=== PATIENT | male | born 1965 | race Two or more races ===

== ENCOUNTER 2016-08-19 19:17 | Emergency (ER) | payer SELFPAY ==
[~2016-08-19] VITALS: Ht 177.8 cm; Wt 186.0 kg
[2016-08-19] MEDS ORDERED: SULF1TAB24 PO (19:42)
[2016-08-19] MEDS ORDERED: HYDR-971 PO (19:42)
[2016-08-19 19:57] VITALS: BP 117/61
[2016-08-19] MEDS ORDERED: SMZ/TMP 800/160MG TABLET. PO ONE (20:00)
--- NOTE | 2016-08-19 20:37 | ED.ADGEN ---
Past Medical History Past Medical History: Hypertension Past Surgical History: Appendectomy Alcohol Use: Sober Drug Use: None Adult General Chief Complaint Chief Complaint: LOWER EXTREMITY EDEMA HPI HPI Patient is a 51 year old male presents emergency department with erythema and tenderness was right lower extremity that began 2 nights ago. He states that it came on suddenly and was accompanied by fever and chills. Denies any chest pain or shortness of breath. Review of Systems Review of Systems Constitutional: Denies fever or chills. [] Eyes: Denies change in visual acuity. [] HENT: Denies nasal congestion or sore throat. [] Respiratory: Denies cough or shortness of breath. [] Cardiovascular: Denies chest pain or edema. [] GI: Denies abdominal pain, nausea, vomiting, bloody stools or diarrhea. [] : Denies dysuria. [] Musculoskeletal: Denies back pain or joint pain. [] Integument: Denies rash. [] Neurologic: Denies headache, focal weakness or sensory changes. [] Endocrine: Denies polyuria or polydipsia. [] Lymphatic: Denies swollen glands. [] Psychiatric: Denies depression or anxiety. [] Current Medications Current Medications Current Medications Medications (Trade) Dose Ordered Sig/Irvin Start Time Stop Time Status Last Admin Dose Admin Trimethoprim/ Sulfamethoxazole (Bactrim Ds) 1 tab 1X ONCE 08/19/16 20:00 08/19/16 20:01 DC 08/19/16 19:51 1 TAB Allergies Allergies Allergies Coded Allergies Type Severity Reaction Last Updated Verified No Known Drug Allergies 09/13/15 No Physical Exam Physical Exam Constitutional: Well developed, well nourished, no acute distress, non-toxic appearance. [] HENT: Normocephalic, atraumatic, bilateral external ears normal, oropharynx moist, no oral exudates, nose normal. [] Eyes: PERRLA, EOMI, conjunctiva normal, no discharge. [] Neck: Normal range of motion, no tenderness, supple, no stridor. [] Cardiovascular:Heart rate regular rhythm, no murmur [] Lungs & Thorax: Bilateral breath sounds clear to auscultation [] Abdomen: Bowel sounds normal, soft, no tenderness, no masses, no pulsatile masses. [] Skin: Warm, dry, skin on the right lower extremity is circumferentially erythematous and tender to touch with minimal edema [] Back: No tenderness, no CVA tenderness. [] Extremities: No tenderness, no cyanosis, no clubbing, ROM intact, no edema. [] Neurologic: Alert and oriented X 3, normal motor function, normal sensory function, no focal deficits noted. [] Psychologic: Affect normal, judgement normal, mood normal. [] Current Patient Data Vital Signs Vital Signs Date Time Temp Pulse Resp B/P Pulse Ox O2 Delivery O2 Flow Rate FiO2 08/19/16 19:57 71 17 117/61 96 Room Air 08/19/16 19:17 97.8 97.8 EKG EKG [] Radiology/Procedures Radiology/Procedures [] Course & Med Decision Making Course & Med Decision Making Pertinent Labs and Imaging studies reviewed. (See chart for details) Patient has a cellulitis. He was given a dose of Bactrim here in emergency department sent home with prescriptions for Bactrim and Neoga. Supportive care as well as follow-up and return precautions. Cellulitis [] Dragon Disclaimer Dragon Disclaimer This electronic medical record was generated, in whole or in part, using a voice recognition dictation system. LIU SAENZ MD Aug 19, 2016 20:37
== END 2016-08-19 20:02 | disposition home or self-care (01) ==
LOC: ER 19:17
DX: L03.115 Cellulitis of right lower limb (principal); I10 Essential (primary) hypertension
CPT/HCPCS: 99283

== ENCOUNTER 2017-05-20 11:23 | Emergency (ER) | payer SELFPAY ==
[~2017-05-20] VITALS: Ht 177.8 cm; Wt 190.5 kg
[~2017-05-20 11:23] MED LIST: HYDR-971 PO; SULF1TAB24 PO
[2017-05-20 12:00] VITALS: BP 150/69
[2017-05-20 12:24] LABS: BILIRUBIN,URINE NEGATIVE (NEG); GLUCOSE,URINE NEGATIVE (NEG); NITRITE,URINE POSITIVE (NEG); PH,URINE 8.5; PROTEIN,URINE 100 mg/dL (NEG-TRACE)
[2017-05-20 12:38] LABS: BACTERIA,URINE MODERATE /HPF (0-FEW); SQUAMOUS EPITHELIAL CELL,UR MOD /LPF
[2017-05-20] MEDS ORDERED: SULF1TAB24 PO (12:55)
--- NOTE | 2017-05-21 15:43 | PHYS DOC ---
Past Medical History Past Medical History: Hypertension, UTI Past Surgical History: Appendectomy, Other Additional Past Surgical Histo: L KNEE, LIP Alcohol Use: Sober Drug Use: None Adult General Chief Complaint Chief Complaint: PAIN ON URINATION [facility] Patient is a 52 year old male who presents with pain with urination. Patient states he has frequency urgency and dysuria. He is noticing some discoloration and darkening of his urine today. His symptoms began 2 days ago. He denies nausea, vomiting or fever. Review of Systems Review of Systems Constitutional: Denies fever or chills [] Respiratory: Denies cough or shortness of breath [] Cardiovascular: No additional information not addressed in HPI [] GI: Denies abdominal pain, nausea, vomiting, bloody stools or diarrhea [] : See history of present illness Musculoskeletal: Denies back pain or joint pain [] Integument: Denies rash or skin lesions [] Neurologic: Denies headache, focal weakness or sensory changes [] Endocrine: Denies polyuria or polydipsia [] All other systems were reviewed and found to be within normal limits, except as documented in this note. Allergies Allergies Allergies Coded Allergies Type Severity Reaction Last Updated Verified No Known Drug Allergies 09/13/15 No Physical Exam Physical Exam Constitutional: Well developed, well nourished, no acute distress, non-toxic appearance. [] Cardiovascular:Heart rate regular rhythm, no murmur [] Lungs & Thorax: Bilateral breath sounds clear to auscultation [] Abdomen: Bowel sounds normal, soft, no tenderness, no masses, no pulsatile masses. [] Skin: Warm, dry, no erythema, no rash. [] Back: No tenderness, no CVA tenderness. [] Neurologic: Alert and oriented X 3, normal motor function, normal sensory function, no focal deficits noted. [] Psychologic: Affect normal, judgement normal, mood normal. [] Current Patient Data Vital Signs Vital Signs Date Time Temp Pulse Resp B/P (MAP) Pulse Ox O2 Delivery O2 Flow Rate FiO2 05/20/17 12:00 97.8 106 20 97 Room Air 97.8 Lab Values Laboratory Tests Test 05/20/17 11:54 Urine Collection Type Void Urine Color Red Urine Clarity Cloudy Urine pH 8.5 Urine Specific [place] 1.015 Urine Protein 100 mg/dL (NEG-TRACE) Urine Glucose (UA) Negative mg/dL (NEG) Urine Ketones (Stick) Negative mg/dL (NEG) Urine Blood Moderate (NEG) Urine Nitrite Positive (NEG) Urine Bilirubin Negative (NEG) Urine Urobilinogen Dipstick 1.0 mg/dL (0.2 mg/dL) Urine Leukocyte Esterase Large (NEG) Urine RBC 6-10 /HPF (0-2) Urine WBC 5-10 /HPF (0-4) Urine Squamous Epithelial Cells Mod /LPF Urine Amorphous Sediment Present /HPF Urine Bacteria Moderate /HPF (0-FEW) Urine Mucus Slight /LPF EKG EKG [] Radiology/Procedures Radiology/Procedures [] Course & Med Decision Making Course & Med Decision Making Pertinent Labs and Imaging studies reviewed. (See chart for details) []1. Urinary tract infection Please take the Anaprox your prescribed as directed. Please follow-up with your primary care provider in one week for recheck of your urine. Since you have had more than one urinary tract infection it is recommended that you see a urologist for your symptoms as well. Please return to the ED if worsening. Dragon Disclaimer Dragon Disclaimer This electronic medical record was generated, in whole or in part, using a voice recognition dictation system. Departure Departure Impression: Primary Impression: Urinary tract infection Disposition: HOME, SELF-CARE Condition: STABLE Patient Instructions: Urinary Tract Infection Additional Instructions: Follow-up with your primary care provider in one week for a recheck of your urine. Please take your antibiotic as directed. Scripts Sulfamethoxazole/Trimethoprim (BACTRIM DS TABLET) 1 Each Tablet 1 TAB PO BID, #20 TAB Prov: ANA MARIA PENDLETON APRN 05/20/17 ANA MARIA PENDLETON APRN May 21, 2017 15:43
== END 2017-05-20 12:58 | disposition home or self-care (01) ==
LOC: ER 11:23
DX: N39.0 Urinary tract infection, site not specified (principal); I10 Essential (primary) hypertension; Z90.49 Acquired absence of other specified parts of digestive tract; Z87.440 Personal history of urinary (tract) infections
CPT/HCPCS: 81001; 87086; 99284

== ENCOUNTER 2018-12-05 12:36 | Emergency (ER) | payer SELFPAY ==
[~2018-12-05] VITALS: Ht 175.3 cm; Wt 170.1 kg
[~2018-12-05 12:36] MED LIST changes: +CIPR500T94 PO; +HYDR-3164 PO; -HYDR-971 PO
[2018-12-05 12:48] VITALS: BP 134/94
[2018-12-05 13:08] LABS: BILIRUBIN,URINE NEGATIVE (NEG); CLARITY,URINE CLOUDY; COLOR,URINE YELLOW; NITRITE,URINE NEGATIVE (NEG); PROTEIN,URINE NEGATIVE (NEG-TRACE); UROBILINOGEN,URINE 0.2 mg/dL (0.2 mg/dL)
[2018-12-05 13:24] LABS: BACTERIA,URINE MANY /HPF (0-FEW); SQUAMOUS EPITHELIAL CELL,UR MOD /LPF; WBC,URINE TNTC /HPF (0-4)
[2018-12-05] MEDS ORDERED: CIPR500T94 PO (13:34)
--- NOTE | 2018-12-05 13:34 | PHYS DOC ---
Past Medical History Past Medical History: Hypertension Past Surgical History: No Surgical History Additional Past Surgical Histo: L KNEE, LIP Alcohol Use: None Drug Use: None Adult General Chief Complaint Chief Complaint: PAIN ON URINATION HPI HPI Patient is a 53 year old with history of hypertension who presents to the ED today complaining of dysuria for 2 days. Denies any fever. Denies any nausea. Patient states he has history of UTIs. He states he has no concerns for STDs. Denies any history of diabetes or BPH. He states he has an appointment with his doctor next month. Review of Systems Review of Systems Constitutional: Denies fever or chills [] Eyes: Denies change in visual acuity, redness, or eye pain [] HENT: Denies nasal congestion or sore throat [] Respiratory: Denies cough or shortness of breath [] Cardiovascular: No additional information not addressed in HPI [] GI: Denies abdominal pain, nausea, vomiting, bloody stools or diarrhea [] : Reports dysuria Musculoskeletal: Denies back pain or joint pain [] Integument: Denies rash or skin lesions [] Neurologic: Denies headache, focal weakness or sensory changes [] All other systems were reviewed and found to be within normal limits, except as documented in this note. Allergies Allergies Allergies Coded Allergies Type Severity Reaction Last Updated Verified No Known Drug Allergies 09/13/15 No Physical Exam Physical Exam Constitutional: Well developed, well nourished, no acute distress, non-toxic appearance. [] HENT: Normocephalic, atraumatic, bilateral external ears normal, oropharynx moist, no oral exudates, nose normal. [] Eyes: PERRLA, EOMI, conjunctiva normal, no discharge. [] Neck: Normal range of motion, no tenderness, supple, no stridor. [] Cardiovascular:Heart rate regular rhythm, no murmur [] Lungs & Thorax: Bilateral breath sounds clear to auscultation [] Abdomen: Bowel sounds normal, soft, no tenderness, no masses, no pulsatile masses. [] Skin: Warm, dry, no erythema, no rash. [] Back: No tenderness, no CVA tenderness. [] Extremities: No tenderness, no cyanosis, no clubbing, ROM intact, no edema. [] Neurologic: Alert and oriented X 3, normal motor function, normal sensory function, no focal deficits noted. [] Psychologic: Affect normal, judgement normal, mood normal. [] Current Patient Data Vital Signs Vital Signs Date Time Temp Pulse Resp B/P (MAP) Pulse Ox O2 Delivery O2 Flow Rate FiO2 12/05/18 12:48 97.8 107 16 134/94 (107) 95 Room Air 97.8 Lab Values Laboratory Tests Test 12/05/18 12:53 Urine Collection Type Unknown Urine Color Yellow Urine Clarity Cloudy Urine pH 7.0 Urine Specific [place] 1.010 Urine Protein Negative mg/dL (NEG-TRACE) Urine Glucose (UA) Negative mg/dL (NEG) Urine Ketones (Stick) Negative mg/dL (NEG) Urine Blood Moderate (NEG) Urine Nitrite Negative (NEG) Urine Bilirubin Negative (NEG) Urine Urobilinogen Dipstick 0.2 mg/dL (0.2 mg/dL) Urine Leukocyte Esterase Large (NEG) Urine RBC 6-10 /HPF (0-2) Urine WBC Tntc /HPF (0-4) Urine Squamous Epithelial Cells Mod /LPF Urine Bacteria Many /HPF (0-FEW) EKG EKG [] Radiology/Procedures Radiology/Procedures [] Course & Med Decision Making Course & Med Decision Making Pertinent Labs and Imaging studies reviewed. (See chart for details) This is a 53-year-old male patient presenting to the ED today with dysuria and concern for UTI, urine positive for large amount of leukocytes, WBCs. Discharged on Cipro. Instructed push fluids. Patient has an appointment with his own doctor next month which is in a couple days. Provided return precautions and discharged in stable condition. Dragon Disclaimer Dragon Disclaimer This electronic medical record was generated, in whole or in part, using a voice recognition dictation system. Departure Departure Impression: Primary Impression: UTI (urinary tract infection) Disposition: HOME, SELF-CARE Condition: STABLE Referrals: KENNY MENA MD (PCP) follow up next month Patient Instructions: Urinary Tract Infection Additional Instructions: You have urinary tract infection, we put you on antibiotics ensure you complete them. Take your antibiotics until completed. Push fluids. Follow up with your doctor in 1 week Scripts Ciprofloxacin Hcl (CIPRO) 500 Mg Tablet 1 TAB PO BID, #14 TAB Prov: MUTMARIBELLANITA [employer] 12/05/18 Problem Qualifiers Primary Impression: UTI (urinary tract infection) Urinary tract infection type: site unspecified Hematuria presence: without hematuria Qualified Codes: N39.0 - Urinary tract infection, site not specified NITA HERNANDEZ [employer] Dec 05, 2018 13:34
== END 2018-12-05 14:18 | disposition home or self-care (01) ==
LOC: ER 12:36
DX: N39.0 Urinary tract infection, site not specified (principal); I10 Essential (primary) hypertension
CPT/HCPCS: 81001; 87086; 99284

== ENCOUNTER 2019-04-10 11:32 | Emergency (ER) | payer SELFPAY ==
[~2019-04-10] VITALS: Ht 177.8 cm; Wt 181.4 kg
[2019-04-10 11:43] VITALS: BP 171/97
[2019-04-10 11:59] LABS: BILIRUBIN,URINE NEGATIVE (NEG); CLARITY,URINE CLOUDY; COLOR,URINE YELLOW; NITRITE,URINE NEGATIVE (NEG); PROTEIN,URINE 100 mg/dL (NEG-TRACE); UROBILINOGEN,URINE 0.2 mg/dL (0.2 mg/dL)
[2019-04-10 12:11] LABS: SQUAMOUS EPITHELIAL CELL,UR MOD /LPF
[2019-04-10 12:12] LABS: BACTERIA,URINE MANY /HPF (0-FEW)
[2019-04-10] MEDS ORDERED: PHEN100T82 PO (12:51)
[2019-04-10] MEDS ORDERED: CIPR250T30 PO (12:51)
--- NOTE | 2019-04-10 12:52 | PHYS DOC ---
Past Medical History Past Medical History: Hypertension Past Surgical History: No Surgical History Additional Past Surgical Histo: L KNEE, LIP Alcohol Use: None Drug Use: None Adult General Chief Complaint Chief Complaint: PAIN ON URINATION [facility] HPI Patient is a 54 year old male who presents with complaining of "UTI". Patient complaining of urinary frequency and dysuria for the last 2 days without nausea and vomiting, fever and chills, abdominal pain, she states she had the same symptom 10 or 11 months ago and he knew he had UTI. Review of Systems Review of Systems Constitutional: Denies fever or chills [] Eyes: Denies change in visual acuity, redness, or eye pain [] HENT: Denies nasal congestion or sore throat [] Respiratory: Denies cough or shortness of breath [] Cardiovascular: No additional information not addressed in HPI [] GI: Denies abdominal pain, nausea, vomiting, bloody stools or diarrhea [] : Denies hematuria , reports dysuria[] Musculoskeletal: Denies back pain or joint pain [] Integument: Denies rash or skin lesions [] Neurologic: Denies headache, focal weakness or sensory changes [] Endocrine: Denies polyuria or polydipsia [] All other systems were reviewed and found to be within normal limits, except as documented in this note. Allergies Allergies Allergies Coded Allergies Type Severity Reaction Last Updated Verified No Known Drug Allergies 09/13/15 No Physical Exam Physical Exam Constitutional: Well developed, well nourished, no distress, non-toxic appearance, morbidly obese. [] HENT: Normocephalic, atraumatic. Eyes: PERRLA, EOMI, conjunctiva normal, no discharge. [] Neck: Normal range of motion, no tenderness, supple, no stridor. [] Cardiovascular:Heart rate regular rhythm, no murmur [] Lungs & Thorax: Bilateral breath sounds clear to auscultation [] Abdomen: Bowel sounds normal, soft, no tenderness, no masses, no pulsatile masses. [] Skin: Warm, dry, no erythema, no rash. [] Back: No tenderness, no CVA tenderness. [] Extremities: No tenderness, no cyanosis, no clubbing, ROM intact. [] Neurologic: Alert and oriented X 3, no focal deficits noted. [] Psychologic: Affect normal, judgement normal, mood normal. [] Current Patient Data Vital Signs Vital Signs Date Time Temp Pulse Resp B/P (MAP) Pulse Ox O2 Delivery O2 Flow Rate FiO2 04/10/19 11:43 97.7 108 22 171/97 (121) 95 Room Air 97.7 Lab Values Laboratory Tests Test 04/10/19 11:40 Urine Collection Type Unknown Urine Color Yellow Urine Clarity Cloudy Urine pH 8.0 Urine Specific [place] 1.015 Urine Protein 100 mg/dL (NEG-TRACE) Urine Glucose (UA) Negative mg/dL (NEG) Urine Ketones (Stick) Negative mg/dL (NEG) Urine Blood Small (NEG) Urine Nitrite Negative (NEG) Urine Bilirubin Negative (NEG) Urine Urobilinogen Dipstick 0.2 mg/dL (0.2 mg/dL) Urine Leukocyte Esterase Large (NEG) Urine RBC 1-2 /HPF (0-2) Urine WBC 11-20 /HPF (0-4) Urine Squamous Epithelial Cells Mod /LPF Urine Bacteria Many /HPF (0-FEW) EKG EKG [] Radiology/Procedures Radiology/Procedures [] Course & Med Decision Making Course & Med Decision Making Pertinent Labs reviewed. (See chart for details) I've spoken with the patient and/or caregivers. I've explained the patient's condition, diagnosis and treatment plan based on information available to me at this time. I've answered the patient's and/or caregivers questions and addressed any concerns. The patient and/or caregivers have a good understanding the patient's diagnosis, condition and treatment plan as can be expected at this point. Vital signs have been stabilized. The patient's condition is stable for discharge from the emergency department. The patient will pursue further outpatient evaluation with her primary care provider or other designated consulting physician as outlined in the discharge instructions. Patient and/or caregivers are agreeable to this plan of care and follow-up instructions have been explained in detail. The patient and/or caregivers have received these instructions in written format and expressed understanding of these discharge instructions. The patient and her caregivers are aware that if any significant change in condition or worsening of symptoms should prompt him to immediately return to this of the closest emergency department. If an emergent department is not readily available I would encourage him to call [phone] Dragon Disclaimer Dragon Disclaimer This electronic medical record was generated, in whole or in part, using a voice recognition dictation system. Departure Departure Impression: Primary Impression: UTI (urinary tract infection) Additional Impressions: Dysuria Morbid obesity with BMI of 50.0-59.9, adult Disposition: 01 HOME, SELF-CARE (at 1247) Condition: STABLE Referrals: KENNY MENA MD (PCP) Patient Instructions: Dysuria, Urinary Tract Infection Additional Instructions: Drink plenty of liquids Follow-up with your primary care physician in 3-5 days Return to ER if not getting better Scripts Phenazopyridine Hcl (PYRIDIUM) 100 Mg Tablet 100 MG PO TID for dysuria, #10 TAB Prov: RAQUEL DOWD MD 04/10/19 Ciprofloxacin Hcl (CIPRO) 250 Mg Tablet 1 TAB PO BID for infection, #14 TAB Prov: RAQUEL DOWD MD 04/10/19 Problem Qualifiers Primary Impression: UTI (urinary tract infection) Urinary tract infection type: site unspecified Hematuria presence: without hematuria Qualified Codes: N39.0 - Urinary tract infection, site not specified RAQUEL DOWD MD Apr 10, 2019 12:52
== END 2019-04-10 13:06 | disposition home or self-care (01) ==
LOC: ER 11:32
DX: N39.0 Urinary tract infection, site not specified (principal); E66.01 Morbid (severe) obesity due to excess calories; Z68.43 Body mass index [BMI] 50.0-59.9, adult; I10 Essential (primary) hypertension
CPT/HCPCS: 81001; 87086; 99284

== ENCOUNTER 2020-03-23 12:53 | Emergency (ER) | payer MEDICAID ==
[~2020-03-23] VITALS: Ht 177.8 cm; Wt 187.2 kg
[~2020-03-23 12:53] MED LIST changes: +BENA20TA4 PO; +CIPR250T30 PO; +HYDR-2145 PO; +PHEN100T82 PO; +POTA20TA4 PO; +POTA8CAP19 PO
[2020-03-23 16:51] LABS: BILIRUBIN,URINE NEGATIVE (NEG); CLARITY,URINE CLOUDY; NITRITE,URINE NEGATIVE (NEG); PROTEIN,URINE 100 mg/dL (NEG-TRACE)
[2020-03-23 16:53] LABS: BACTERIA,URINE FEW /HPF (0-FEW); COLOR,URINE BROWN; RBC,URINE TNTC /HPF (0-2); WBC,URINE OCC /HPF (0-4)
--- NOTE | 2020-03-23 17:19 | PHYS DOC ---
Past Medical History Past Medical History: Hypertension Past Surgical History: No Surgical History Additional Past Surgical Histo: L KNEE, LIP Smoking Status: Former Smoker Alcohol Use: Occasionally Drug Use: None General Adult EDM: Chief Complaint: PAIN ON URINATION HPI: HPI: Patient is a 55 year old male who presents with dysuria and hematuria that began 2 days ago. Patient denies any fever, denies any abdominal pain, nausea or vomiting. Patient reports this is his typical presentation for UTI. Review of Systems: Review of Systems: Constitutional: Denies fever or chills. [] Eyes: Denies change in visual acuity. [] HENT: Denies nasal congestion or sore throat. [] Respiratory: Denies cough or shortness of breath. [] Cardiovascular: Denies chest pain or edema. [] GI: Denies abdominal pain, nausea, vomiting, bloody stools or diarrhea. [] : Reports dysuria and hematuria Musculoskeletal: Denies back pain or joint pain. [] Integument: Denies rash. [] Neurologic: Denies headache, focal weakness or sensory changes. [] Psychiatric: Denies depression or anxiety. [] Heart Score: Risk Factors: Risk Factors: DM, Current or recent (<one month) smoker, HTN, HLP, family history of CAD, obesity. Risk Scores: Score 0 - 3: 2.5% MACE over next 6 weeks - Discharge Home Score 4 - 6: 20.3% MACE over next 6 weeks - Admit for Clinical Observation Score 7 - 10: 72.7% MACE over next 6 weeks - Early Invasive Strategies Allergies: Allergies: Allergies Coded Allergies Type Severity Reaction Last Updated Verified morphine Allergy Intermediate Itching 03/23/20 Yes Physical Exam: PE: Constitutional: Well developed, well nourished, no acute distress, non-toxic appearance. [] HENT: Normocephalic, atraumatic, bilateral external ears normal, oropharynx moist, no oral exudates, nose normal. [] Eyes: PERRLA, EOMI, conjunctiva normal, no discharge. [] Neck: Normal range of motion, no tenderness, supple, no stridor. [] Cardiovascular:Heart rate regular rhythm, no murmur [] Lungs & Thorax: Bilateral breath sounds clear to auscultation [] Abdomen: Bowel sounds normal, soft, no tenderness, no masses, no pulsatile masses. [] Skin: Warm, dry, no erythema, no rash. [] Back: No tenderness, no CVA tenderness. [] Extremities: No tenderness, no cyanosis, no clubbing, ROM intact, no edema. [] Neurologic: Alert and oriented X 3, normal motor function, normal sensory function, no focal deficits noted. [] Psychologic: Affect normal, judgement normal, mood normal. [] Current Patient Data: Labs: Laboratory Tests Test 03/23/20 16:20 Urine Collection Type Unknown Urine Color Brown Urine Clarity Cloudy Urine pH 8.0 (<5.0-8.0) Urine Specific [place] 1.015 (1.000-1.030) Urine Protein 100 mg/dL (NEG-TRACE) Urine Glucose (UA) Negative mg/dL (NEG) Urine Ketones (Stick) Negative mg/dL (NEG) Urine Blood Large (NEG) Urine Nitrite Negative (NEG) Urine Bilirubin Negative (NEG) Urine Urobilinogen Dipstick 1.0 mg/dL (0.2 mg/dL) Urine Leukocyte Esterase Small (NEG) Urine RBC Tntc /HPF (0-2) Urine WBC Occ /HPF (0-4) Urine Bacteria Few /HPF (0-FEW) Vital Signs: Vital Signs Date Time Temp Pulse Resp B/P (MAP) Pulse Ox O2 Delivery O2 Flow Rate FiO2 03/23/20 16:20 97.9 84 20 141/94 (110) 95 Room Air 97.9 EKG: EKG: [] Radiology/Procedures: Radiology/Procedures: [] Course & Med Decision Making: Course & Med Decision Making Pertinent Labs and Imaging studies reviewed. (See chart for details) This is a 55-year-old male patient with history of UTI presenting today with hematuria and dysuria for 2 days. Positive for UTI. Discharged on Cipro. Instructed to push fluids and follow-up with the PCP in 1 to 2 weeks. Dragon Disclaimer: Dragon Disclaimer: This electronic medical record was generated, in whole or in part, using a voice recognition dictation system. Departure Departure Impression: Primary Impression: UTI (urinary tract infection) Qualified Codes: N39.0 - Urinary tract infection, site not specified; R31.9 - Hematuria, unspecified Disposition: 01 DC HOME SELF CARE/HOMELESS Condition: STABLE Referrals: KENNY MENA MD (PCP) Follow-up in 1 to 2 weeks Patient Instructions: Urinary Tract Infection Additional Instructions: You have urinary tract infection. Complete your antibiotics. Push fluids. Follow-up with your primary care doctor in the next 1 to 2 weeks Scripts Ciprofloxacin Hcl (CIPRO) 500 Mg Tablet 1 TAB PO BID for 7 Days, #14 TAB 0 Refills Prov: NITA HERNANDEZ APRN 03/23/20 NITA HERNANDEZ APRN Mar 23, 2020 17:19
[2020-03-23] MEDS ORDERED: CIPR500T94 PO (17:36)
[2020-03-23 17:40] VITALS: BP 138/79
== END 2020-03-23 17:40 | disposition home or self-care (01) ==
LOC: ER 12:53
DX: N39.0 Urinary tract infection, site not specified (principal); R31.9 Hematuria, unspecified; I10 Essential (primary) hypertension; Z98.890 Other specified postprocedural states; Z87.891 Personal history of nicotine dependence; Z88.6 Allergy status to analgesic agent
CPT/HCPCS: 81001; 87086; 99283

== ENCOUNTER 2020-08-15 15:17 | Emergency (ER) | payer MEDICAID ==
[~2020-08-15] VITALS: Ht 175.3 cm; Wt 163.0 kg
[2020-08-15 17:02] LABS: BILIRUBIN,URINE NEGATIVE (NEG); CLARITY,URINE CLOUDY; COLOR,URINE RED; NITRITE,URINE POSITIVE (NEG); PROTEIN,URINE 100 mg/dL (NEG-TRACE)
[2020-08-15 17:13] LABS: BACTERIA,URINE MODERATE /HPF (0-FEW); RBC,URINE TNTC /HPF (0-2); WBC,URINE TNTC /HPF (0-4)
[2020-08-15] MEDS ORDERED: NITROFURANTOIN MONOHYD/M-CRYST 100 MG CAPSULE. PO ONE (18:15)
[2020-08-15 18:36] LABS: BASO # 0.1 x10^3/uL (0.0-0.2); BASO % 1 % (0-3); EOS # 0.1 x10^3/uL (0.0-0.7); EOS % 1 % (0-3); HEMATOCRIT 43.3 % (39.0-53.0); HEMOGLOBIN 14.6 g/dL (13.0-17.5); LYMPH # 3.1 x10^3/uL (1.0-4.8); LYMPH % 33 % (24-48); MEAN CORPUSCULAR HEMOGLOBIN 27 pg (25-35); MEAN CORPUSCULAR HGB CONC 34 g/dL (31-37); MEAN CORPUSCULAR VOLUME 81 fL (79-100); MONO # 0.8 x10^3/uL (0.0-1.1); MONO % 9 % (0-9); NEUT # 5.4 x10^3/uL (1.8-7.7); NEUT % 57 % (31-73); PLATELET COUNT 268 x10^3/uL (140-400); RED BLOOD COUNT 5.37 x10^6/uL (4.30-5.70); WHITE BLOOD COUNT 9.5 x10^3/uL (4.0-11.0)
--- NOTE | 2020-08-15 18:48 | PHYS DOC ---
Past Medical History Past Medical History: Hypertension Past Surgical History: No Surgical History Additional Past Surgical Histo: L KNEE, LIP Smoking Status: Former Smoker Alcohol Use: Occasionally Drug Use: None Adult General Chief Complaint Chief Complaint: BLOOD IN URINE HPI HPI Patient is a 55 year old male with a known past medical history of multiple urinary tract infections in the past presents emergency department complaint of new onset of bloody urine. Patient denies any dysuria, pyuria, pain or fevers but notes that he had some dark red-tinged urine. Patient states that preceding episodes of urinary tract infections. Denies any nausea, vomiting, fever, chills, chest pain or shortness of breath. Review of Systems Review of Systems Constitutional: Denies fever or chills [] Eyes: Denies change in visual acuity, redness, or eye pain [] HENT: Denies nasal congestion or sore throat [] Respiratory: Denies cough or shortness of breath [] Cardiovascular: No additional information not addressed in HPI [] GI: Denies abdominal pain, nausea, vomiting, bloody stools or diarrhea [] : Denies dysuria or hematuria [] Musculoskeletal: Denies back pain or joint pain [] Integument: Denies rash or skin lesions [] Neurologic: Denies headache, focal weakness or sensory changes [] Endocrine: Denies polyuria or polydipsia [] All other systems were reviewed and found to be within normal limits, except as documented in this note. Current Medications Current Medications Current Medications Medications (Trade) Dose Ordered Sig/Irvin Start Time Stop Time Status Last Admin Dose Admin Nitrofurantoin Macrocrystals (Macrobid) 100 mg 1X ONCE 08/15/20 18:15 08/15/20 18:16 DC 08/15/20 18:16 100 MG Allergies Allergies Allergies Coded Allergies Type Severity Reaction Last Updated Verified morphine Allergy Intermediate Itching 03/23/20 Yes Physical Exam Physical Exam Constitutional: Well developed, well nourished, no acute distress, non-toxic appearance. [] HENT: Normocephalic, atraumatic, bilateral external ears normal, oropharynx moist, no oral exudates, nose normal. [] Eyes: PERRLA, EOMI, conjunctiva normal, no discharge. [] Neck: Normal range of motion, no tenderness, supple, no stridor. [] Cardiovascular:Heart rate regular rhythm, no murmur [] Lungs & Thorax: Bilateral breath sounds clear to auscultation [] Abdomen: Bowel sounds normal, soft, no tenderness, no masses, no pulsatile masses. [] Skin: Warm, dry, no erythema, no rash. [] Back: No tenderness, no CVA tenderness. [] Extremities: No tenderness, no cyanosis, no clubbing, ROM intact, no edema. [] Neurologic: Alert and oriented X 3, normal motor function, normal sensory function, no focal deficits noted. [] Psychologic: Affect normal, judgement normal, mood normal. [] Current Patient Data Vital Signs Vital Signs Date Time Temp Pulse Resp B/P (MAP) Pulse Ox O2 Delivery O2 Flow Rate FiO2 08/15/20 15:30 97.6 65 16 159/84 (109) 97 97.6 Lab Values Laboratory Tests Test 08/15/20 16:50 08/15/20 18:28 Urine Collection Type Unknown Urine Color Red Urine Clarity Cloudy Urine pH 7.0 (<5.0-8.0) Urine Specific [place] 1.015 (1.000-1.030) Urine Protein 100 mg/dL (NEG-TRACE) Urine Glucose (UA) Negative mg/dL (NEG) Urine Ketones (Stick) Trace mg/dL (NEG) Urine Blood Large (NEG) Urine Nitrite Positive (NEG) Urine Bilirubin Negative (NEG) Urine Urobilinogen Dipstick 1.0 mg/dL (0.2 mg/dL) Urine Leukocyte Esterase Large (NEG) Urine RBC Tntc /HPF (0-2) Urine WBC Tntc /HPF (0-4) Urine Squamous Epithelial Cells Few /LPF Urine Bacteria Moderate /HPF (0-FEW) White Blood Count 9.5 x10^3/uL (4.0-11.0) Red Blood Count 5.37 x10^6/uL (4.30-5.70) Hemoglobin 14.6 g/dL (13.0-17.5) Hematocrit 43.3 % (39.0-53.0) Mean Corpuscular Volume 81 fL (79-100) Mean Corpuscular Hemoglobin 27 pg (25-35) Mean Corpuscular Hemoglobin Concent 34 g/dL (31-37) Red Cell Distribution Width 15.0 % (11.5-14.5) H Platelet Count 268 x10^3/uL (140-400) Neutrophils (%) (Auto) 57 % (31-73) Lymphocytes (%) (Auto) 33 % (24-48) Monocytes (%) (Auto) 9 % (0-9) Eosinophils (%) (Auto) 1 % (0-3) Basophils (%) (Auto) 1 % (0-3) Neutrophils # (Auto) 5.4 x10^3/uL (1.8-7.7) Lymphocytes # (Auto) 3.1 x10^3/uL (1.0-4.8) Monocytes # (Auto) 0.8 x10^3/uL (0.0-1.1) Eosinophils # (Auto) 0.1 x10^3/uL (0.0-0.7) Basophils # (Auto) 0.1 x10^3/uL (0.0-0.2) Laboratory Tests 08/15/20 18:28 EKG EKG [] Radiology/Procedures Radiology/Procedures [] Course & Med Decision Making Course & Med Decision Making Pertinent Labs and Imaging studies reviewed. (See chart for details) 55M presents emergency department with blood in his urine. Urinalysis consistent with an urinary tract infection. At this time will treat. No pain or tenderness on exam to indicate pyelonephritis, acute appendicitis or other significant intra-abdominal pathology Dragon Disclaimer Dragon Disclaimer This electronic medical record was generated, in whole or in part, using a voice recognition dictation system. Departure Departure Impression: Primary Impression: UTI (urinary tract infection) Disposition: 01 OR HOME SELF CARE/HOMELESS Condition: GOOD Referrals: KENNY MENA MD (PCP) Patient Instructions: Urinary Tract Infection Additional Instructions: EMERGENCY DEPARTMENT GENERAL DISCHARGE INSTRUCTIONS Thank you for coming to [facility] (ED) today and trusting us with you care. We trust that you had a positive experience in our Emergency Department. If you wish to speak to the department management, you may call the Director at [phone]. YOUR FOLLOW UP INSTRUCTIONS ARE FOLLOWS: 1. Do you have a private Doctor? If you do not have a private doctor, please ask for a resource list of physicians or clinics that may be able to assist you with follow up care. 2. The Emergency Physicain has interpreted your x-rays. The X-Ray specialist will also review them. If there is a change in the findings, you will be notified in 48 hours when at all possible. 3. A lab test or culture has been done, your results will be reviewed and you will be notified if you need a change in treatment. ADDITIONAL INSTRUCTIONS AND INFORMATION: 1. Your care today has been supervised by a physician who is specially trained in emergency care. Many problems require more than one evaluation for a complete diagnosis and treatment. We recommend that you schedule your follow up appointment as recommended to ensure complete treatment of you illness or injury. If you are unable to obtain follow up care and continue to have a problem, or if your condition worsens, we recommend that you return to the ED. 2. We are not able to safely determine your condition over the phone nor are we able to give sound medical advice over the phone. For these safety reasons, if you call for medical advice we will ask you to come to the ED for further evaluation. 3. If you have any questions regarding these discharge instructions please call the ED at [phone]. SAFETY INFORMATION: In the interest of safety, wellness, and injury prevention; we encourage you to wear your sealbelt, if you smoke; quite smoking, and we encourage family to use a protective helmet for bicycling and other sporting events that present an increased risk for head injury. IF YOUR SYMPTOMS WORSEN OR NEW SYMPTOMS DEVELOP, OR YOU HAVE CONCERNS ABOUT YOUR CONDITION; OR IF YOUR CONDITION WORSENS WHILE YOU ARE WAITING FOR YOUR FOLLOW UP APPOINTMENT; EITHER CONTACT YOUR PRIMARY CARE DOCTOR, THE PHYSICIAN WHOSE NAME AND NUMBER YOU WERE GIVEN, OR RETURN TO THE ED IMMEDIATELY. Scripts Nitrofurantoin Monohyd/M-Cryst (MACROBID 100 MG CAPSULE) 100 Mg Capsule 1 CAP PO BID for 10 Days, #20 CAP 0 Refills Prov: POP TINSLEY MD 08/15/20 POP TINSLEY MD Aug 15, 2020 18:48
[2020-08-15 18:53] LABS: CALCIUM 8.6 mg/dL (8.5-10.1); CREATININE 0.9 mg/dL (0.7-1.3); GFR 87.9; POTASSIUM 3.9 mmol/L (3.5-5.1)
[2020-08-15] MEDS ORDERED: NITR100C62 PO (18:56)
[2020-08-15 18:58] LABS: ALBUMIN 3.1 g/dL (3.4-5.0); ALBUMIN/GLOBULIN RATIO 0.7 (1.0-1.7); TOTAL BILIRUBIN 0.2 mg/dL (0.2-1.0); TOTAL PROTEIN 7.6 g/dL (6.4-8.2)
== END 2020-08-15 19:05 | disposition home or self-care (01) ==
LOC: ER 15:17
DX: N39.0 Urinary tract infection, site not specified (principal); I10 Essential (primary) hypertension; Z87.891 Personal history of nicotine dependence; Z88.5 Allergy status to narcotic agent
CPT/HCPCS: 36415; 80053; 81001; 85025; 87086; 99284

== ENCOUNTER 2020-09-14 14:11 | Emergency (ER) | payer MEDICAID ==
[~2020-09-14] VITALS: Ht 177.8 cm; Wt 182.0 kg
[~2020-09-14 14:11] MED LIST changes: +NITR100C62 PO
--- NOTE | 2020-09-14 15:36 | PHYS DOC ---
Past Medical History Past Medical History: Hypertension Additional Past Surgical Histo: L KNEE, LIP Smoking Status: Never Smoker Alcohol Use: Occasionally Drug Use: None General Adult EDM: Chief Complaint: SKIN RASH/ABSCESS HPI: HPI: This is a pleasant 55-year-old male presenting the emergency department today with a rash on his left axilla and his feet bilaterally. The rash has been present for multiple weeks. It is worsened. He recently had been given Macrobid for a UTI which he finishes therapy a few weeks ago. When he finished his therapy his rash in his arm started. His feet rash have been present prior to all this. He has pain in these areas and has noticed redness with drainage. Review of systems negative for chest pain shortness of breath abdominal pain nausea vomiting diaphoresis fevers or chills. All other review of systems negative. ED course: 55-year-old male presenting with tinea cruris to the left axillary region and tinea pedis bilaterally with associated probable cellulitis. We called our wound center clinic who is coming to evaluate the patient's wounds. We will start the patient on topical powder nystatin cream and oral terbinafine along with oral amoxicillin clauvanic acid. X-ray shows no subcutaneous emphysema. No signs of osteomyelitis. Patient will need close outpatient follow-up and wound care. We will have the patient follow-up with wound care tomorrow. Heart Score: C/O Chest Pain: No Risk Factors: Risk Factors: DM, Current or recent (<one month) smoker, HTN, HLP, family history of CAD, obesity. Risk Scores: Score 0 - 3: 2.5% MACE over next 6 weeks - Discharge Home Score 4 - 6: 20.3% MACE over next 6 weeks - Admit for Clinical Observation Score 7 - 10: 72.7% MACE over next 6 weeks - Early Invasive Strategies Allergies: Allergies: Allergies Coded Allergies Type Severity Reaction Last Updated Verified morphine Allergy Intermediate Itching 03/23/20 Yes Physical Exam: PE: Constitutional: Well developed, well nourished, no acute distress, non-toxic appearance. [] Obese. HENT: Normocephalic, atraumatic, bilateral external ears normal, oropharynx moist, no oral exudates, nose normal. [] Eyes: PERRLA, EOMI, conjunctiva normal, no discharge. [] Neck: Normal range of motion, no tenderness, supple, no stridor. [] Cardiovascular:Heart rate regular rhythm, no murmur [] Lungs & Thorax: Bilateral breath sounds clear to auscultation [] Abdomen: Bowel sounds normal, soft, no tenderness, no masses, no pulsatile masses. [] Skin: Warm, dry, no erythema, no rash. [] Back: No tenderness, no CVA tenderness. [] Extremities: No tenderness, no cyanosis, no clubbing, ROM intact, no edema. [] The patient's left axilla has erythema with a serpiginous white outline of the erythema with scaling. The remainder of his upper extremities are normal in appearance with normal range of motion of the joints. Nontender and neurovascular intact. The patient's feet bilaterally have erythema with swelling. He has crusting with moist skin in the intertriginous regions. Normal neurovascular status. The remainder of the lower extremities are unremarkable. Neurologic: Alert and oriented X 3, normal motor function, normal sensory function, no focal deficits noted. [] Psychologic: Affect normal, judgement normal, mood normal. [] Current Patient Data: Vital Signs: Vital Signs Date Time Temp Pulse Resp B/P (MAP) Pulse Ox O2 Delivery O2 Flow Rate FiO2 09/14/20 15:11 98.0 92 16 136/76 (96) 95 Room Air 98.0 EKG: EKG: [] Radiology/Procedures: Radiology/Procedures: [] Course & Med Decision Making: Course & Med Decision Making Pertinent Labs and Imaging studies reviewed. (See chart for details) [] Dragon Disclaimer: Dragon Disclaimer: This electronic medical record was generated, in whole or in part, using a voice recognition dictation system. Departure Departure Impression: Primary Impression: Tinea cruris Additional Impressions: Cellulitis Tinea pedis Disposition: 01 DC HOME SELF CARE/HOMELESS Condition: STABLE Referrals: KENNY MENA MD (PCP) Patient Instructions: Athlete's Foot, Cellulitis, Rash Additional Instructions: EMERGENCY DEPARTMENT GENERAL DISCHARGE INSTRUCTIONS Follow-up with your primary physician in 1 to 2 days. Return to the emergency department if you have any new or concerning findings. Thank you for coming to [facility] Emergency Department (ED) today and trusting us with you care. We trust that you had a positive experience in our Emergency Department. If you wish to speak to the department management, you may call the Director at [phone]. Follow up is important in emergency/acute care visits. This condition should be evaluated by your primary care physician and any necessary consulting services for continued management within a few days (1-2) after discharge. Return to the emergency department if you have any new or concerning symptoms including but not limited to fever, chills, nausea, vomiting, intractable pain, any new rashes, chest pain, shortness of breath, uncontrolled bleeding, difficulty breathing, and/or vision loss. 1. Do you have a private Doctor? If you do not have a private doctor, please ask for a resource list of physicians or clinics that may be able to assist you with follow up care. 2. If a lab test or culture has been done and does not come back immediately, your results will be reviewed and you will be notified if you need a change in treatment. 3. Your care today has been supervised by a physician who is specially trained in emergency care. Many problems require more than one evaluation for a complete diagnosis and treatment. We recommend that you schedule your follow up appointment as recommended to ensure complete treatment of you illness or injury. If you are unable to obtain follow up care and continue to have a problem, or if your condition worsens, we recommend that you return to the ED. 4. We are not able to safely determine your condition over the phone nor are we able to give sound medical advice over the phone. For these safety reasons, if you call for medical advice we will ask you to come to the ED for further evaluation. IF YOUR SYMPTOMS WORSEN OR NEW SYMPTOMS DEVELOP, OR YOU HAVE CONCERNS ABOUT YOUR CONDITION; OR IF YOUR CONDITION WORSENS WHILE YOU ARE WAITING FOR YOUR FOLLOW UP APPOINTMENT; EITHER CONTACT YOUR PRIMARY CARE DOCTOR, THE PHYSICIAN WHOSE NAME AND NUMBER YOU WERE GIVEN, OR RETURN TO THE ED IMMEDIATELY. Scripts Amoxicillin/Potassium Clav (AUGMENTIN 875-125 TABLET) 1 Each Tablet 1 TAB PO BID for 10 Days, #20 TAB 0 Refills Prov: MARIELY HENAO MD 09/14/20 Nystatin (NYSTATIN) 15 Gm Powder 1 MARY TP BID for 7 Days, #1 BOTTLE 0 Refills apply to affected area(s) Prov: MARIELY HENAO MD 09/14/20 Terbinafine Hcl (TERBINAFINE HCL) 250 Mg Tablet 1 TAB PO DAILY for 14 Days, #14 TAB 0 Refills Prov: MARIELY HENAO MD 09/14/20 MARIELY HENAO MD Sep 14, 2020 15:36
[2020-09-14] MEDS ORDERED: NYST15PO9 TP (15:50)
[2020-09-14] MEDS ORDERED: TERB250T84 PO (15:50)
[2020-09-14] MEDS ORDERED: AMOX1TAB61 PO (15:50)
[2020-09-14] MEDS ORDERED: PIPERACILLIN/TAZOBACTAM 3.375 GM in IV NORMAL SALINE 50ML 50 ML IV ONE (16:15)
[2020-09-14] MEDS ORDERED: PIP/TAZO PER PHARMACY MC PRN (16:15)
--- NOTE | 2020-09-14 16:41 | RAD ---
3 views bilateral feet HISTORY: Foot pain AP lateral oblique views bilaterally The visualized osseous structures appear normal. Is diffuse soft tissue swelling. IMPRESSION: No acute bony abnormality. Electronically signed by: Leo Warren III, MD (09/14/2020 4:39 PM) [facility]
[2020-09-14 16:55] LABS: BASO # 0.1 x10^3/uL (0.0-0.2); BASO % 1 % (0-3); EOS # 0.2 x10^3/uL (0.0-0.7); EOS % 1 % (0-3); HEMATOCRIT 45.8 % (39.0-53.0); HEMOGLOBIN 14.9 g/dL (13.0-17.5); LYMPH # 3.3 x10^3/uL (1.0-4.8); LYMPH % 24 % (24-48); MEAN CORPUSCULAR HEMOGLOBIN 27 pg (25-35); MEAN CORPUSCULAR HGB CONC 33 g/dL (31-37); MEAN CORPUSCULAR VOLUME 81 fL (79-100); MONO # 1.2 x10^3/uL (0.0-1.1); MONO % 9 % (0-9); NEUT # 9.3 x10^3/uL (1.8-7.7); NEUT % 66 % (31-73); PLATELET COUNT 350 x10^3/uL (140-400); RED BLOOD COUNT 5.63 x10^6/uL (4.30-5.70); RED CELL DISTRIBUTION WIDTH 15.2 % (11.5-14.5)
[2020-09-14 17:08] LABS: CALCIUM 8.7 mg/dL (8.5-10.1); CREATININE 1.1 mg/dL (0.7-1.3); GFR 69.8; POTASSIUM 3.2 mmol/L (3.5-5.1)
[2020-09-14 17:11] LABS: ALBUMIN/GLOBULIN RATIO 0.6 (1.0-1.7); TOTAL BILIRUBIN 0.3 mg/dL (0.2-1.0)
[2020-09-14 17:33] VITALS: BP 140/69
== END 2020-09-14 17:35 | disposition home or self-care (01) ==
LOC: ER 14:11
DX: B35.6 Tinea cruris (principal); B35.3 Tinea pedis; L03.112 Cellulitis of left axilla; L03.111 Cellulitis of right axilla; I10 Essential (primary) hypertension; Z88.0 Allergy status to penicillin; Z88.5 Allergy status to narcotic agent
CPT/HCPCS: 36415; 73630; 80053; 85025; 96365; 99284; J2543

== ENCOUNTER 2020-09-18 12:54 | Emergency (ER) | payer MEDICAID ==
[~2020-09-18] VITALS: Ht 177.8 cm; Wt 182.0 kg
[~2020-09-18 12:54] MED LIST changes: +AMOX1TAB61 PO; +NYST15PO9 TP; +TERB250T84 PO
[2020-09-18 13:00] VITALS: BP 158/72
[2020-09-18 14:28] LABS: BASO # 0.1 x10^3/uL (0.0-0.2); BASO % 1 % (0-3); EOS # 0.1 x10^3/uL (0.0-0.7); EOS % 1 % (0-3); HEMOGLOBIN 13.9 g/dL (13.0-17.5); LYMPH # 2.2 x10^3/uL (1.0-4.8); LYMPH % 24 % (24-48); MEAN CORPUSCULAR HEMOGLOBIN 27 pg (25-35); MEAN CORPUSCULAR HGB CONC 33 g/dL (31-37); MEAN CORPUSCULAR VOLUME 81 fL (79-100); MONO # 0.8 x10^3/uL (0.0-1.1); MONO % 8 % (0-9); NEUT # 6.1 x10^3/uL (1.8-7.7); NEUT % 67 % (31-73); PLATELET COUNT 323 x10^3/uL (140-400); RED BLOOD COUNT 5.17 x10^6/uL (4.30-5.70); RED CELL DISTRIBUTION WIDTH 15.1 % (11.5-14.5); WHITE BLOOD COUNT 9.2 x10^3/uL (4.0-11.0)
[2020-09-18 14:41] LABS: PROTHROMBIN TIME PATIENT 12.8 SEC (11.7-14.0)
[2020-09-18 14:42] LABS: CLARITY,URINE BLOODY; COLOR,URINE RED
[2020-09-18 14:43] LABS: CALCIUM 8.4 mg/dL (8.5-10.1); CREATININE 1.1 mg/dL (0.7-1.3); GFR 69.8; POTASSIUM 3.9 mmol/L (3.5-5.1)
[2020-09-18 14:44] LABS: RBC,URINE TNTC /HPF (0-2)
[2020-09-18 14:47] LABS: WBC,URINE RARE /HPF (0-4)
[2020-09-18 14:48] LABS: BACTERIA,URINE FEW /HPF (0-FEW)
[2020-09-18 14:49] LABS: ALBUMIN/GLOBULIN RATIO 0.7 (1.0-1.7); TOTAL BILIRUBIN 0.4 mg/dL (0.2-1.0); TOTAL PROTEIN 7.4 g/dL (6.4-8.2)
--- NOTE | 2020-09-18 14:56 | ED.ADGEN ---
Past Medical History Past Medical History: Hypertension Past Surgical History: No Surgical History Additional Past Surgical Histo: L KNEE, LIP Smoking Status: Never Smoker Alcohol Use: Occasionally Drug Use: None General Adult EDM: Chief Complaint: BLOOD IN URINE HPI: HPI: 57-year male coming in for gross hematuria, denies any clots. Has been worsening since yesterday. About 5 or 6 days ago patient started taking terbinafine and Augmentin for skin infection. Patient has a history of multiple urinary tract infections but he says he has not had blood with them. No history of kidney stones or pyelonephritis. Patient denies any systemic complaints. Denies any dysuria or frequency. Patient says he has history of hypertension, but not diabetes. Patient states he does not take any anticoagulants. Denies any testicular pain or discharge. Review of Systems: Review of Systems: All other systems within normal limits except for as noted in the HPI Allergies: Allergies: Allergies Coded Allergies Type Severity Reaction Last Updated Verified morphine Allergy Intermediate Itching 03/23/20 Yes Physical Exam: PE: Constitutional: Well developed, well nourished, no acute distress, non-toxic appearance. [] HENT: Normocephalic, atraumatic, bilateral external ears normal, nose normal. [] Eyes: PERRLA, conjunctiva normal, no discharge. [] Neck: No rigidity, supple, no stridor. [] Cardiovascular: Regular rate and rhythm, brisk cap refill [] Lungs & Thorax: Non labored symmetric respirations, no tachypnea or respiratory distress [] Abdomen: Soft, nondistended. Skin: Warm, dry, no erythema, no rash. [] Back: Unremarkable, right CVA tenderness Extremities: No deformities, range of motion grossly intact, no lower extremity edema [] Neurologic: Alert and oriented X 3, no focal deficits noted. [] Psychologic: Affect normal, judgement normal, mood normal. [] Current Patient Data: Labs: Laboratory Tests Test 09/18/20 00:00 09/18/20 14:20 Urine Collection Type Unknown Urine Color Red Urine Clarity Bloody Urine pH (<5.0-8.0) Urine Specific [place] (1.000-1.030) Urine Protein mg/dL (NEG-TRACE) Urine Glucose (UA) mg/dL (NEG) Urine Ketones (Stick) mg/dL (NEG) Urine Blood (NEG) Urine Nitrite (NEG) Urine Bilirubin (NEG) Urine Urobilinogen Dipstick mg/dL (0.2 mg/dL) Urine Leukocyte Esterase (NEG) Urine RBC Tntc /HPF (0-2) Urine WBC Rare /HPF (0-4) Urine Squamous Epithelial Cells Occ /LPF Urine Bacteria Few /HPF (0-FEW) White Blood Count 9.2 x10^3/uL (4.0-11.0) Red Blood Count 5.17 x10^6/uL (4.30-5.70) Hemoglobin 13.9 g/dL (13.0-17.5) Hematocrit 42.0 % (39.0-53.0) Mean Corpuscular Volume 81 fL (79-100) Mean Corpuscular Hemoglobin 27 pg (25-35) Mean Corpuscular Hemoglobin Concent 33 g/dL (31-37) Red Cell Distribution Width 15.1 % (11.5-14.5) H Platelet Count 323 x10^3/uL (140-400) Neutrophils (%) (Auto) 67 % (31-73) Lymphocytes (%) (Auto) 24 % (24-48) Monocytes (%) (Auto) 8 % (0-9) Eosinophils (%) (Auto) 1 % (0-3) Basophils (%) (Auto) 1 % (0-3) Neutrophils # (Auto) 6.1 x10^3/uL (1.8-7.7) Lymphocytes # (Auto) 2.2 x10^3/uL (1.0-4.8) Monocytes # (Auto) 0.8 x10^3/uL (0.0-1.1) Eosinophils # (Auto) 0.1 x10^3/uL (0.0-0.7) Basophils # (Auto) 0.1 x10^3/uL (0.0-0.2) Prothrombin Time 12.8 SEC (11.7-14.0) Prothrombin Time INR 1.0 (0.8-1.1) Sodium Level 141 mmol/L (136-145) Potassium Level 3.9 mmol/L (3.5-5.1) Chloride Level 101 mmol/L (98-107) Carbon Dioxide Level 28 mmol/L (21-32) Anion Gap 12 (6-14) Blood Urea Nitrogen 16 mg/dL (8-26) Creatinine 1.1 mg/dL (0.7-1.3) Estimated GFR (Cockcroft-Gault) 69.8 BUN/Creatinine Ratio 15 (6-20) Glucose Level 162 mg/dL (70-99) H Calcium Level 8.4 mg/dL (8.5-10.1) L Total Bilirubin 0.4 mg/dL (0.2-1.0) Aspartate Amino Transferase (AST) 19 U/L (15-37) Alanine Aminotransferase (ALT) 23 U/L (16-63) Alkaline Phosphatase 56 U/L (46-116) Total Protein 7.4 g/dL (6.4-8.2) Albumin 3.0 g/dL (3.4-5.0) L Albumin/Globulin Ratio 0.7 (1.0-1.7) L Laboratory Tests 09/18/20 14:20 Laboratory Tests 09/18/20 14:20 Vital Signs: Vital Signs Date Time Temp Pulse Resp B/P (MAP) Pulse Ox O2 Delivery O2 Flow Rate FiO2 09/18/20 13:00 98.3 113 16 158/72 (100) 95 Room Air 98.3 EKG: EKG: [] Heart Score: C/O Chest Pain: No Risk Factors: Risk Factors: DM, Current or recent (<one month) smoker, HTN, HLP, family history of CAD, obesity. Risk Scores: Score 0 - 3: 2.5% MACE over next 6 weeks - Discharge Home Score 4 - 6: 20.3% MACE over next 6 weeks - Admit for Clinical Observation Score 7 - 10: 72.7% MACE over next 6 weeks - Early Invasive Strategies Radiology/Procedures: Radiology/Procedures: Exam performed: CT scan of the abdomen and pelvis without contrast. Clinical Indication: Reason: hematuria, right flank pain / Spl. Instructions: / History: Date of Service: 09/18/2020 2:26 PM. Comparison: None available Technique: Contiguous helical acquisitions are obtained through the abdomen and pelvis without IV contrast. Sagittal and coronal reformatted images are obtained and reviewed. CT abdomen and pelvis findings: The lung bases are essentially clear. Visualized heart is normal. Lack of IV contrast limits evaluation of abdominal viscera, however the liver, spleen and pancreas are normal. Gallbladder is distended. Both adrenal glands and bilateral kidneys are normal in size without hydronephrosis or nephrolithiasis. Aorta is normal in caliber without aneurysm. Small and large bowel loops are nondilated and unremarkable. There is a left lower quadrant hernia to the left of midline containing several small bowel loops. Appendix is not clearly visualized urinary bladder is markedly distended. No pelvic lymphadenopathy or mass lesion is seen. Interrogation of bone windows is unremarkable. Impression: No acute intra-abdominal or pelvic process detected. Left lower abdominal wall hernia. [] Course & Med Decision Making: Course & Med Decision Making Pertinent Labs and Imaging studies reviewed. (See chart for details) Work-up unremarkable. Discussed with pharmacist the possibility of hematuria caused by terbinafine. She agrees it could be a possible cause. Discussed treatment be changed to fluconazole. [] Dragon Disclaimer: Dragon Disclaimer: This electronic medical record was generated, in whole or in part, using a voice recognition dictation system. Departure Departure Impression: Primary Impression: Hematuria Disposition: 01 DC HOME SELF CARE/HOMELESS Condition: STABLE Referrals: KENNY MENA MD (PCP) Patient Instructions: Hematuria, Adult Additional Instructions: Discontinue taking terbinafine, switch to fluconazole as directed. Drink plenty of fluids. Return to emergency department if unable to urinate or voiding large clots, lightheaded, having palpitations, or racing heart rate. Follow-up with your primary care provider for urology consult if symptoms not resolved within 3 to 4 days. Scripts Fluconazole (FLUCONAZOLE) 100 Mg Tablet 1 TAB PO DAILY for antifungal for 10 Days, #10 TAB Prov: TRACI SAM MD 09/18/20 TRACI SAM MD Sep 18, 2020 14:56
--- NOTE | 2020-09-18 15:41 | RAD ---
PQRS Compliance Statement: One or more of the following individualized dose reduction techniques were utilized for this examinat ion: 1. Automated exposure control 2. Adjustment of the mA and/or kV according to patient size 3. Use of iterative reconstruction technique Exam performed: CT scan of the abdomen and pelvis without contrast. Clinical Indication: Reason: hematuria, right flank pain / Spl. Instructions: / History: Date of Service: 09/18/2020 2:26 PM. Comparison: None available Technique: Contiguous helical acquisitions are obtained through the abdomen and pelvis without IV con trast. Sagittal and coronal reformatted images are obtained and reviewed. CT abdomen and pelvis findings: The lung bases are essentially clear. Visualized heart is normal. Lack of IV contrast limits evaluation of abdominal viscera, however the liver, spleen and pancreas ar e normal. Gallbladder is distended. Both adrenal glands and bilateral kidneys are normal in size with out hydronephrosis or nephrolithiasis. Aorta is normal in caliber without aneurysm. Small and large b owel loops are nondilated and unremarkable. There is a left lower quadrant hernia to the left of midl ine containing several small bowel loops. Appendix is not clearly visualized urinary bladder is marke dly distended. No pelvic lymphadenopathy or mass lesion is seen. Interrogation of bone windows is unr emarkable. Impression: No acute intra-abdominal or pelvic process detected. Left lower abdominal wall hernia. Electronically signed by: Brittney Che MD (09/18/2020 3:38 PM) [facility]
[2020-09-18] MEDS ORDERED: FLUC100T4 PO (16:09)
== END 2020-09-18 16:15 | disposition home or self-care (01) ==
LOC: ER 12:54
DX: I10 Essential (primary) hypertension (principal); Z98.890 Other specified postprocedural states; Z88.6 Allergy status to analgesic agent
CPT/HCPCS: 36415; 74176; 80053; 81001; 85025; 85610; 99284

== ENCOUNTER 2021-05-25 16:22 | Emergency (ER) | payer MEDICAID ==
[~2021-05-25] VITALS: Ht 188 cm; Wt 193.0 kg
[~2021-05-25 16:22] MED LIST changes: -BENA20TA4 PO; +BENA20TA84 PO; +FLUC100T4 PO; +POTA-121 PO; -POTA20TA4 PO; +TERB250T72 PO; -TERB250T84 PO
[2021-05-25 18:40] LABS: CLARITY,URINE BLOODY; COLOR,URINE RED
[2021-05-25 18:46] LABS: RBC,URINE TNTC /HPF (0-2)
[2021-05-25 18:48] LABS: AMORPHOUS SEDIMENT,UR PRESENT /HPF; BACTERIA,URINE FEW /HPF (0-FEW)
[2021-05-25] MEDS ORDERED: CEPH500T PO (19:27)
--- NOTE | 2021-05-25 19:27 | PHYS DOC ---
Past Medical History Past Medical History: Hypertension Past Surgical History: Appendectomy Additional Past Surgical Histo: L KNEE, LIP Smoking Status: Unknown if ever smoked Alcohol Use: Occasionally Drug Use: None General Adult EDM: Chief Complaint: BLOOD IN URINE HPI: HPI: Patient is a 56-year-old male who presents to the emergency department complaining of bloody urination today, noted left flank pain yesterday evening, reports a history of kidney stones, states this is much like his previous kidney stone problems however reports he was given an antibiotic during his last bloody urination problem approximately 1 year ago which seemed to help his problems. Patient denies burning with urination, increased urinary frequency, urinary pressure, or dysuria. Denies seeing blood in stool. Denies chest pains, abdominal pains, nausea, vomiting, diarrhea. Patient denies other physical complaints or physical concerns. Review of Systems: Review of Systems: 14 body systems of review of systems have been reviewed. See HPI for pertinent positives and negative responses, otherwise all other systems are negative, nonpertinent or noncontributory. Constitutional: Negative except as outlined in HPI above. Skin: Negative except as outlined in HPI above. Eyes: Negative except as outlined in HPI above. HENT: Negative except as outlined in HPI above. Respiratory: Negative except as outlined in HPI above. Cardiovascular: Negative except as outlined in HPI above. GI: Negative except as outlined in HPI above. : Negative except as outlined in HPI above. Musculoskeletal: Negative except as outlined in HPI above. Integument: Negative except as outlined in HPI above. Neurologic: Negative except as outlined in HPI above. Endocrine: Negative except as outlined in HPI above. Lymphatic: Negative except as outlined in HPI above. Psychiatric: Negative except as outlined in HPI above. Heart Score: C/O Chest Pain: No Risk Factors: Risk Factors: DM, Current or recent (<one month) smoker, HTN, HLP, family history of CAD, obesity. Risk Scores: Score 0 - 3: 2.5% MACE over next 6 weeks - Discharge Home Score 4 - 6: 20.3% MACE over next 6 weeks - Admit for Clinical Observation Score 7 - 10: 72.7% MACE over next 6 weeks - Early Invasive Strategies Allergies: Allergies: Allergies Coded Allergies Type Severity Reaction Last Updated Verified morphine Allergy Intermediate Itching 03/23/20 Yes codeine Allergy Mild Hives 05/25/21 Yes Physical Exam: PE: Constitutional: Well developed, well nourished, no acute distress, non-toxic appearance. 56-year-old male in no apparent distress. HENT: Normocephalic, atraumatic. Eyes: Conjunctiva normal, no discharge. Neck: Normal range of motion, no stridor. Cardiovascular: No cyanosis appreciated, distal cap refill less than 2 seconds. Lungs & Thorax: Patient is in no respiratory distress, no audible adventitious lung sounds appreciated. Abdomen: Nontender, no abnormalities noted. Skin: Warm, dry, no erythema, no rash. Back: No tenderness, no deformities. No left-sided or right-sided CVA TTP. Extremities: No tenderness, no cyanosis, no clubbing, ROM intact, no edema. Neurologic: Alert and oriented X 3, normal motor function, normal sensory function, no focal deficits noted. Psychologic: Affect normal, judgement normal, mood normal. Current Patient Data: Labs: Laboratory Tests Test 05/25/21 17:50 Urine Collection Type Unknown Urine Color Red Urine Clarity Bloody Urine pH (<5.0-8.0) Urine Specific [place] (1.000-1.030) Urine Protein mg/dL (NEG-TRACE) Urine Glucose (UA) mg/dL (NEG) Urine Ketones (Stick) mg/dL (NEG) Urine Blood (NEG) Urine Nitrite (NEG) Urine Bilirubin (NEG) Urine Urobilinogen Dipstick mg/dL (0.2 mg/dL) Urine Leukocyte Esterase (NEG) Urine RBC Tntc /HPF (0-2) Urine WBC 5-10 /HPF (0-4) Urine Squamous Epithelial Cells Few /LPF Urine Amorphous Sediment Present /HPF Urine Bacteria Few /HPF (0-FEW) Urine Mucus Slight /LPF Vital Signs: Vital Signs Date Time Temp Pulse Resp B/P (MAP) Pulse Ox O2 Delivery O2 Flow Rate FiO2 05/25/21 17:53 98.0 91 18 159/85 (109) Room Air 98.0 EKG: EKG: [] Radiology/Procedures: Radiology/Procedures: [] Course & Med Decision Making: Course & Med Decision Making Pertinent Labs and Imaging studies reviewed. (See chart for details) 56-year-old male, vital signs reviewed, presents emerged from concerning hematuria. Physical examination nonconcerning, however patient did complain of left-sided mid to low back pain to triage nurse but denied pain during my examination, there was no CVA TTP, will order urinalysis assay, if positive for hematuria will order CT stone study. Urinalysis assay showed hematuria, discussed with patient will order CT scan abdomen pelvis, patient has refused this stating he does want to antibiotic to go home. Discussed with patient I cannot complete examination without further CT imaging to rule out other abdominal such as kidney stones versus acute abdominal infections versus pyelonephritis versus other abdominal process. Patient reports he just wants an antibiotic and he is going to leave the emergency department. Patient states if he has any further pain he will come back for further testing. Discussed with patient he would be leaving AGAINST MEDICAL ADVICE. Notified by the patient's ED nurse that the patient wishes to leave AGAINST MEDICAL ADVICE. The patient and I had an extensive discussion regarding the risks of leaving AMA including but not limited to , permanent disability, and worsening condition. Also had an extensive discussion with the patient regarding the benefits of excepting admission and transfer which include promotion of health and wellness, and ongoing treatment of disease processes. The patient acknowledged the risks and benefits and agreed to take full responsibility of leaving AGAINST MEDICAL ADVICE. The patient was alert and oriented x4 and had full medical decision-making capability when they signed the AMA forms. The patient has decided to leave our facility against medical advice. I have assessed patient's ability to make informed decision and feel the patient has the capacity to comprehend information regarding the current medical condition and appreciates the impact of the disease or condition and the consequences of various options for treatment, including foregoing treatment. The patient possesses the ability to evaluate all treatment options, comparing the risks and benefits of each option, communicate his or her choice in a consistent manner over time, and is able to make rational choices. I explained to the patient further testing, treatment, and evaluation I would like to perform in the emergency department visit as well as any possible alternatives that can be accomplished in a timely manner. I have outlined the possible risks of foregoing any or all of these interventions and the patient understands and acknowledges that the decision to leave may result in undesirable consequences such as , permanent disability, and/or loss of current lifestyle. Even though leaving AMA is not ideal, I have instructed the patient to follow any discharge instructions given, take any medications prescribed, and resume care as soon as possible with another provider. This conversation was witnessed by another member of the emergency department staff and we clearly communicated the patient is welcome to return anytime to continue care at our facility. Venkat Disclaimer: Vnekat Disclaimer: This electronic medical record was generated, in whole or in part, using a voice recognition dictation system. Departure Departure Impression: Primary Impression: Hematuria Qualified Codes: R31.9 - Hematuria, unspecified Additional Impression: Left against medical advice Disposition: HOME / SELF CARE / HOMELESS Condition: GOOD Referrals: KENNY MENA MD (PCP) Additional Instructions: You were seen today in the emergency department for blood in your urine. There was in fact blood in your urine however you have refused any further evaluation in the emergency department today. I am concerned this may be a kidney infection or a kidney stone or 1 of many other abdominal infectious and concerning processes that can cause blood in your urine. At this time I am unable to make a definitive diagnosis. I will prescribe an antibiotic for this hematuria problem however I encourage you to return to the emergency department for worsening symptoms and to complete an evaluation. Otherwise please follow- up with your primary care physician this week for an ongoing investigation of the blood in your urine. Patient does not wish to proceed with medical care recommended by BENI Ramos [employer] patient given information related to possible complications, up to and including , which could occur as a result of leaving the hospital at this time. Patient verbalizes understanding of risks involved due to leaving against medical advice. Patient has signed AMA form. Scripts Cephalexin (CEPHALEXIN) 500 Mg Tablet 1 TAB PO BID for 7 Days, #14 TAB 0 Refills Prov: YULIANA RAMOS APRN 05/25/21 YULIANA RAMOS APRN May 25, 2021 19:27
[2021-05-25 19:30] VITALS: BP 138/84
== END 2021-05-25 19:32 | disposition home or self-care (01) ==
LOC: ER 16:22
DX: R31.9 Hematuria, unspecified (principal); I10 Essential (primary) hypertension; Z90.89 Acquired absence of other organs; Z88.5 Allergy status to narcotic agent
CPT/HCPCS: 81001; 87086; 99283